=== PATIENT | male | born 1985 | race African-American/Black ===

== ENCOUNTER 2018-05-03 19:57 | Emergency (ER) | payer OTHER ==
[~2018-05-03] VITALS: Ht 172.7 cm; Wt 68.0 kg
[~2018-05-03 19:57] MED LIST: ANUSOL-HC25 MG RECTAL; BACTRIM DS TAB1 EACH PO; IBUPROFEN 800800 MG PO; LORTAB 10 MG-3473 ML PO; NOHOMEMEDICATIONS; NORCO 5-325 TA1 EACH PO; TRIAMCINOLONE A80 G2 TOP
[2018-05-03 20:36] LABS: URINE BILIRUBIN NEGATIVE (Negative); URINE BLOOD NEGATIVE (Negative); URINE CLARITY CLEAR; URINE COLOR YELLOW; URINE GLUCOSE-RANDOM* NEGATIVE (Negative); URINE KETONES TRACE (Negative); URINE LEUKOCYTES-REFLEX NEGATIVE (Negative); URINE NITRITE-REFLEX NEGATIVE (Negative); URINE PROTEIN (DIPSTICK) NEGATIVE (Negative); URINE SPECIFIC GRAVITY >= 1.030 (1.005-1.035)
[2018-05-03 20:51] LABS: HEMOGLOBIN 14.8 gm/dL (14.0-18.0); MCH 29.8 pg (26.0-34.0); MCHC 34.4 g/dL (28.0-37.0); MCV 86.7 fL (80.0-100.0); PLATELET COUNT 167 thou/uL (150-400); RBC 4.96 mil/uL (4.50-6.00); RDW 13.2 % (10.5-14.5); WBC 5.8 thou/uL (4.0-11.0)
[2018-05-03 21:00] LABS: CALCIUM 8.6 mg/dL (8.5-10.1); CREATININE 1.2 mg/dL (0.7-1.3); POTASSIUM 3.1 mmol/L (3.5-5.1)
[2018-05-03 21:05] LABS: ALBUMIN 3.4 g/dL (3.4-5.0); TOTAL BILIRUBIN 0.9 mg/dL (<0.1-1.0)
[2018-05-03] MEDS ORDERED: ZOFRAN8 MG PO ×2 (21:09→21:37)
[2018-05-03 21:35] LABS: ABSOLUTE NEUTROPHILS 4.1 thou/uL (1.4-8.2)
[2018-05-03 21:37] VITALS: BP 137/81
== END 2018-05-03 21:39 | disposition home or self-care (01) ==
LOC: ER 19:57
PROVIDERS: Emergency Medicine
DX: R10.9 Unspecified abdominal pain (principal); R19.7 Diarrhea, unspecified; R11.0 Nausea; Z87.891 Personal history of nicotine dependence